=== PATIENT | female | born 1945 | race Two or more races ===

== ENCOUNTER 2019-12-08 07:30 | Inpatient (IN) | payer OTHER ==
[~2019-12-08] VITALS: Ht 149.9 cm; Wt 80.3 kg
[2019-12-08] MEDS ORDERED: ZESTRIL20 MG PO (09:13)
[2019-12-08] MEDS ORDERED: CENTRUM ADULTS1 EACH PO (09:14)
[2019-12-08] MEDS ORDERED: VITAMIN C PO (09:14)
[2019-12-14] MEDS ORDERED: VITAMIN C100 MG PO (07:52)
[2019-12-16] MEDS ORDERED: PERCOCET 5-3251 EACH PO (15:39)
[2019-12-16] MEDS ORDERED: ELIQUIS2.5 MG PO (15:39)
[2019-12-16] MEDS ORDERED: DUI500 PO (15:39)
== END 2019-12-16 20:10 | DRG 470 ==
LOC: ADM 07:30 → EDSTATUS 07:30 → SURG 12-14 06:00 → O/R 12-14 06:00 → SURH 12-14 07:30 → SURG 12-14 11:19
PROVIDERS: ADMIT Orthopaedic Surgery; ATTEND Orthopaedic Surgery
PROC: 0MNN0ZZ Release Right Knee Bursa and Ligament, Open Approach (ICD-10-PCS; 2019-12-14)
PROC: 0SRC0J9 Replacement of Right Knee Joint with Synthetic Substitute, Cemented, Open Approach (ICD-10-PCS; principal; 2019-12-14 10:00)
DX: M17.11 Unilateral primary osteoarthritis, right knee (principal); M22.11 Recurrent subluxation of patella, right knee; E66.09 Other obesity due to excess calories; I10 Essential (primary) hypertension; D69.6 Thrombocytopenia, unspecified